=== PATIENT | female | born 1970 | race Two or more races ===

== ENCOUNTER 2019-01-29 15:09 | Inpatient (IN) | payer OTHER ==
[~2019-01-29] VITALS: Ht 165.1 cm; Wt 63.5 kg
[2019-01-29] MEDS ORDERED: PEPCID20 MG PO (15:49)
[2019-01-29] MEDS ORDERED: OMEPRAZOLE20 M1 PO (15:49)
[2019-01-29] MEDS ORDERED: CIPRO500 MG PO (16:39)
[2019-01-29] MEDS ORDERED: FOLIC ACID1 MG PO (16:39)
[2019-01-29] MEDS ORDERED: PRE PROTEIN PO (16:40)
[2019-02-09] MEDS ORDERED: HYOSCYAMINE0.125 M1 SL (13:13)
[2019-02-09] MEDS ORDERED: KETOROLAC TROME10 MG PO (13:14)
[2019-02-09] MEDS ORDERED: INTEGRA F CAPS1 EACH PO (13:15)
== END 2019-02-09 16:58 | disposition home or self-care (01) | DRG 330 ==
LOC: O/R 02-04 06:00 → SURG 02-04 06:00 → SURH 02-04 15:00 → SURG 02-09 16:58
PROVIDERS: Obstetrics & Gynecology Gynecologic Oncology; Urology; ADMIT Surgery
PROC: 0UT24ZZ Resection of Bilateral Ovaries, Percutaneous Endoscopic Approach (ICD-10-PCS; 2019-02-04)
PROC: 0DN84ZZ Release Small Intestine, Percutaneous Endoscopic Approach (ICD-10-PCS; 2019-02-04)
PROC: 0DTJ4ZZ Resection of Appendix, Percutaneous Endoscopic Approach (ICD-10-PCS; 2019-02-04)
PROC: 0TR Urinary System, Replacement (ICD-10-PCS; 2019-02-04)
PROC: 0DJD8ZZ Inspection of Lower Intestinal Tract, Via Natural or Artificial Opening Endoscopic (ICD-10-PCS; 2019-02-04)
PROC: BT1FZZZ Fluoroscopy of Left Kidney, Ureter and Bladder (ICD-10-PCS; 2019-02-04)
PROC: 0TP980Z Removal of Drainage Device from Ureter, Via Natural or Artificial Opening Endoscopic (ICD-10-PCS; 2019-02-04)
PROC: 0DQ84ZZ Repair Small Intestine, Percutaneous Endoscopic Approach (ICD-10-PCS; principal; 2019-02-04 15:00)
PROC: 0UT94ZZ Resection of Uterus, Percutaneous Endoscopic Approach (ICD-10-PCS; 2019-02-04 15:00)
PROC: 07TC4ZZ Resection of Pelvis Lymphatic, Percutaneous Endoscopic Approach (ICD-10-PCS; 2019-02-04 15:00)
PROC: 30233N1 Transfusion of Nonautologous Red Blood Cells into Peripheral Vein, Percutaneous Approach (ICD-10-PCS; 2019-02-09)
DX: N80.5 Endometriosis of intestine (principal); K56.690 Other partial intestinal obstruction; N13.1 Hydronephrosis with ureteral stricture, not elsewhere classified; K91.71 Accidental puncture and laceration of a digestive system organ or structure during a digestive system procedure; N80.3 Endometriosis of pelvic peritoneum; N80.0 Endometriosis of uterus; N80.1 Endometriosis of ovary; N73.6 Female pelvic peritoneal adhesions (postinfective); N83.8 Other noninflammatory disorders of ovary, fallopian tube and broad ligament; D64.89 Other specified anemias